=== PATIENT | female | born 2005 | race Caucasian/White ===

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

== ENCOUNTER 2024-12-21 13:25 | Emergency (ER) | payer OTHER, SELFPAY ==
--- NOTE | ~2024-12-21 | XR_ITS ---
EXAMINATION: XR foot LT min 3V DATE: 12/21/2024 14:19 INDICATION: Left foot injury. TECHNIQUE: 5 views of left foot were obtained. COMPARISON: None. FINDINGS: Alignment is normal. There is a chip avulsion fracture fragment at the lateral aspect of fo urth proximal interphalangeal joint. Joint spaces are normal. IMPRESSION: 1. Chip avulsion fracture fragment at the lateral aspect of fourth proximal interphalangeal joint. Reviewed, dictated and finalized at location A. LLMENT PROCESSOR IMPRESSION: 1. Chip avulsion fracture fragment at the lateral aspect of fourth proximal int erphalangeal joint.
--- NOTE | 2024-12-21 13:29 | ED_ITS ---
HPI - URI/Sore Throat General Chief Complaint: Extremity Injury, Lower Stated Complaint: Left Foot Pain Time Seen by Provider: 12/21/24 14:27 Source: patient and RN notes reviewed Mode of arrival: ambulatory Limitations: no limitations History of Present Illness MD elicited complaint: cough and sore throat Related Data Home Medications ?Medication ?Instructions ?Recorded ?Confirmed ?Last Taken ?Type aripiprazole 5 mg tablet mg 12/21/24 Unknown History cyclobenzaprine 10 mg tablet mg 12/21/24 Unknown History etonogestrel 0.12 mg-ethinyl vag ring vaginal 12/21/24 Unknown History estradiol 0.015 mg/24 hr vaginal ring (EluRyng) methylphenidate HCl 20 mg mg PO 12/21/24 Unknown History tablet,extended release Allergies Allergy/AdvReac Type Severity Reaction Status Date / Time No Known Allergies Allergy Verified 12/21/24 13:28 Review of Systems Review of Systems: CONSTITUTIONAL: Denies malaise, chills, sweats, or fever. EYES: Denies visual changes, redness, or discharge. ENT: Reports rhinorrhea, congestion, sinus pain, otalgia and sore throat. CARDIOVASCULAR: Denies chest pain, palpitations, or edema. RESPIRATORY: Reports cough. Denies dyspnea. GASTROINTESTINAL: Denies abdominal pain, nausea, vomiting, diarrhea SKIN: Denies rash or itching. MUSCULOSKELETAL: Denies myalgia. NEUROLOGIC: Denies headache. All systems reviewed & are unremarkable except as noted in HPI and below PMFSH Past Medical History Medical History (Updated 12/21/24 @ 14:33 by Jasmine Martínez NP) Smoker Depression Surgical History Surgical History History of laparoscopic appendectomy 06/14/[address] Rothman No pertinent past surgical history Social History Social History Smoking status: Never smoker Alcohol intake: current Substance use type: unknown Comments At time of signature, agree with nursing past medical, surgical, social and family history. There is no relevant family history pertinent to the presenting complaint Exam Narrative: GENERAL: Well-appearing, well-nourished, and in no acute distress. HEAD: Normocephalic EYES: PERRLA, conjunctivae clear ENT: Nares clear, turbinates edematous and erythematous, clear discharge. Mucous membranes moist. TM pearly niño with dull light reflex bilaterally; no tragal tenderness. Oropharynx not erythematous without lesions. Tonsils not enlarged and without exudate, no drooling, no hoarseness, no trismus, uvula midline. NECK: Supple. No lymphadenopathy CHEST: Clear to auscultation, breath sounds equal. No wheezing, rhonchi, rales, or stridor. No respiratory distress, speaks in full sentences. HEART: Regular rate and rhythm. No murmur heard. SKIN: Warm, dry, no rash. NEURO: Alert and oriented x3. PSYCH: Normal mood and affect Course Course Emergency Course: Patient is aware of diagnosis, understands and agrees to treatment plan. Anticipatory guidance given. Patient agrees to follow-up as directed and is aware of reasons to seek care at the emergency department. Portions of this record may have been created with voice recognition software Level of Care: Express Care Visit Vital Signs Vital signs: Reviewed. MDM - URI/Sore Throat MDM Narrative Medical decision making narrative: Differential diagnosis considered: Jefferson virus, strep pharyngitis, allergic rhinitis, upper respiratory tract infection, sinusitis, rhinosinusitis, nasopharyngitis. viral pharyngitis, otitis media, otitis externa, pneumonia, bronchitis, viral cough syndrome, viral syndrome, and influenza. Exam findings show no acute concerns or changes; patient is non-toxic appearing and is in no distress. Patient is appropriate for outpatient treatment and follow-up. Lab Data Attestation: I reviewed the patient's lab results. Imaging Data Radiologist's impression: EXAMINATION: XR foot LT min 3V DATE: 12/21/2024 14:19 INDICATION: Left foot injury. TECHNIQUE: 5 views of left foot were obtained. COMPARISON: None. FINDINGS: Alignment is normal. There is a chip avulsion fracture fragment at the lateral aspect of fourth proximal interphalangeal joint. Joint spaces are normal. IMPRESSION: 1. Chip avulsion fracture fragment at the lateral aspect of fourth proximal interphalangeal joint. Critical Care Time Critical Care Time Critical Care Time: No Discharge Plan Discharge Clinical Impression: Avulsion fracture Patient Disposition: Home, Self-Care Condition: Stable Instructions: Toe Fracture (ED) Additional Instructions: Please rest, ice and elevate the affected extremity. Please take Motrin 600mg every 8 hours, as needed, for pain (take with food). Follow up with Orthopedics or your primary care provider in 1-2 days for further evaluation - please call for an appointment. Keep orthopedic shoe on when walking, you may also yeyo tape the toe. Please go to ER immediately for increased pain, tingling/numbness, swelling, redness, and fever Patient Language: Vietnamese Prescriptions: No Action cyclobenzaprine 10 mg tablet methylphenidate HCl 20 mg tablet extended release PO etonogestrel-ethinyl estradiol [EluRyng] 0.12-0.015 mg/24 hr ring VAGINAL aripiprazole 5 mg tablet Follow-up/Referrals: Ray,THELMA Paredes [Primary Care Provider] - Time of Disposition: 14:33
[2024-12-21 13:36] VITALS: BP 119/66; PULSE 105; RESP 20; TEMP 36.8; O2SAT 100
--- NOTE | 2024-12-21 14:35 | ED_ITS ---
HPI - Extremity Injury (Lower) General Chief Complaint: Extremity Injury, Lower Stated Complaint: Left Foot Pain Time Seen by Provider: 12/21/24 14:27 Source: patient and RN notes reviewed Mode of arrival: ambulatory Limitations: no limitations History of Present Illness HPI Narrative: 19-year-old female presents with concern for injury to her left foot. Reports last night she was doing handstands when she bent her toe back the wrong way. She reports pain at the base the toe, but swelling and bruising. MD complaint: foot injury Related Data Home Medications ?Medication ?Instructions ?Recorded ?Confirmed ?Last Taken ?Type aripiprazole 5 mg tablet mg 12/21/24 Unknown History cyclobenzaprine 10 mg tablet mg 12/21/24 Unknown History etonogestrel 0.12 mg-ethinyl vag ring vaginal 12/21/24 Unknown History estradiol 0.015 mg/24 hr vaginal ring (EluRyng) methylphenidate HCl 20 mg mg PO 12/21/24 Unknown History tablet,extended release Allergies Allergy/AdvReac Type Severity Reaction Status Date / Time No Known Allergies Allergy Verified 12/21/24 13:28 Review of Systems Review of Systems: CONSTITUTIONAL: Denies malaise, chills, sweats, or fever. SKIN: Denies rash or itching, open skin, laceration, abrasion, redness, warmth MUSCULOSKELETAL: Reports left foot pain, swelling NEUROLOGIC: Denies numbness, weakness All systems reviewed & are unremarkable except as noted in HPI and below PMFSH Past Medical History Medical History (Updated 12/21/24 @ 14:33 by Jasmine Martínez NP) Smoker Depression Surgical History Surgical History History of laparoscopic appendectomy 06/14/[address] Rothman No pertinent past surgical history Social History Social History Smoking status: Never smoker Alcohol intake: current Substance use type: unknown Comments At time of signature, agree with nursing past medical, surgical, social and family history. There is no relevant family history pertinent to the presenting complaint Exam Narrative: GENERAL: Well-appearing, well-nourished, and in no acute distress. HEAD: Normocephalic, atraumatic. EYES: PERRLA, conjunctivae clear NECK: Supple. CHEST: Speaks in full sentences. No respiratory distress. HEART: Regular rate and rhythm. Normal and equal peripheral pulses. EXTREMITIES: Left foot and digits have grossly normal strength and sensation, grossly normal range of motion. Mild edema and ecchymosis noted to the base of the 4th digit. Normal sensation with sensitivity to light touch and pain. Fourth digit tenderness. No open wounds, no skin tenting, no devitalized tissue or atrophy, no trophic changes, no obvious deformity, alignment normal, nearby joints and structures intact. Distal pulses palpable and equal bilaterally, skin warm, dry, pink. Capillary refill less than 3 seconds. SKIN: Warm, dry, no rash. NEURO: Alert and oriented x3. PSYCH: Normal mood and affect Course Course Emergency Course: Patient is aware of diagnosis, understands and agrees to treatment plan. Anticipatory guidance given. Patient agrees to follow-up as directed and is aware of reasons to seek care at the emergency department. Portions of this record may have been created with voice recognition software Level of Care: Express Care Visit Vital Signs Vital signs: Vital Signs Temperature 98.2 F 12/21/24 13:36 Pulse Rate 105 H 12/21/24 13:36 Respiratory Rate 20 12/21/24 13:36 Blood Pressure 119/66 12/21/24 13:36 Pulse Oximetry 100 12/21/24 13:36 Oxygen Delivery Room Air 12/21/24 13:36 Temperature 98.2 F 12/21/24 13:36 Pulse Rate 105 H 12/21/24 13:36 Respiratory Rate 20 12/21/24 13:36 Blood Pressure 119/66 12/21/24 13:36 Pulse Oximetry 100 12/21/24 13:36 Oxygen Delivery Room Air 12/21/24 13:36 Reviewed. MDM - Extremity Injury (Lower) MDM Narrative Medical decision making narrative: Patients injury and pain is consistent with musculoskeletal etiology. No signs of neurological or vascular compromise on exam. Compartments and tissues are soft without signs of compartment syndrome. Pain is felt appropriate for further evaluation on an outpatient basis. Critical Care Time Critical Care Time Critical Care Time: No Discharge Plan Discharge Clinical Impression: Avulsion fracture Patient Disposition: Home, Self-Care Condition: Stable Instructions: Toe Fracture (ED) Additional Instructions: Please rest, ice and elevate the affected extremity. Please take Motrin 600mg every 8 hours, as needed, for pain (take with food). Follow up with Orthopedics or your primary care provider in 1-2 days for further evaluation - please call for an appointment. Keep orthopedic shoe on when walking, you may also yeyo tape the toe. Please go to ER immediately for increased pain, tingling/numbness, swelling, redness, and fever Patient Language: [place]de[place] Prescriptions: No Action cyclobenzaprine 10 mg tablet methylphenidate HCl 20 mg tablet extended release PO etonogestrel-ethinyl estradiol [EluRyng] 0.12-0.015 mg/24 hr ring VAGINAL aripiprazole 5 mg tablet Follow-up/Referrals: Ray,THELMA Paredes [Primary Care Provider] - Rex Bush MD [Physician] - Time of Disposition: 14:33
== END 2024-12-21 14:50 | disposition home or self-care (01) ==
PROVIDERS: Emergency Provider Nurse Practitioner; PCP Physician Assistant
DX: S92.512A Displaced fracture of proximal phalanx of left lesser toe(s), initial encounter for closed fracture (principal); X50.9XXA Other and unspecified overexertion or strenuous movements or postures, initial encounter
CPT/HCPCS: 73630; 99214; G0463

== ENCOUNTER 2025-08-10 17:12 | Emergency (ER) | payer OTHER, SELFPAY ==
[2025-08-10 17:38] VITALS: BP 128/81; PULSE 111; RESP 16; TEMP 36.9; O2SAT 100
--- OUTSIDE RECORDS SUMMARY | 2025-08-10 17:47 | XMS_ITS | Patient Health Record ---
Author Organization [facility] Address [address] [place] [address] Care Team Providers Care Electronics Scale Tester Name Role Phone Aashish Brar Primary Care Provider Sherie Goldberg Unavailable [phone] Allergies No Known Allergies Results Component Value Reference Range Flag Notes Test Reviewed date:10/19/2024 12:41:06 PM Interpretation: Performing Lab: Notes/Report: Test urine NEGATIVE 0 - 0 UDT Reviewed date:10/19/2024 12:41:06 PM Interpretation: Performing Lab: Notes/Report: THC POS 0 - 50 ng/ml Cocaine NEG 0 - 300 ng/ml Amphetamine NEG 0 - 1000 ng/ml Buprenorphine (BUP) NEG 0 - 10 ng/ml Secobarbital (Bar) NEG 0 - 300 ng/ml Oxazepam (BZO) NEG 0 - 300 ng/ml 0-tdrmnvairr-7,2-xamvyspa-9, 3-dip henylpyrrolidine (EDDP) NEG 0 - 300 ng/ml Methamphetamine (MET) NEG 0 - 1000 ng/ml Methylenedioxymethamphetamin e (MDMA) NEG 0 - 500 ng/ml Morphine (MOP 300/LUI1371) NEG 0 - 300 ng/ml Methadone (MTD) NEG 0 - 300 ng/ml Phencyclidine (PCP) NEG 0 - 25 ng/ml Nortriptyline (TCA) NEG 0 - 1000 ng/ml Oxycodone NEG 0 - 300 ng/ml x NEG 0 - 300 ng/ml UDT Reviewed date:01/18/2025 11:57:27 AM Interpretation: Performing Lab: Notes/Report: THC P 0 - 50 ng/ml Cocaine N 0 - 300 ng/ml Amphetamine N 0 - 1000 ng/ml Buprenorphine (BUP) N 0 - 10 ng/ml Secobarbital (Bar) N 0 - 300 ng/ml Oxazepam (BZO) N 0 - 300 ng/ml 3-wvjgmpubbh-9,0-lwmzlrjp-4, 3-dip henylpyrrolidine (EDDP) N 0 - 300 ng/ml Methamphetamine (MET) N 0 - 1000 ng/ml Methylenedioxymethamphetamin e (MDMA) N 0 - 500 ng/ml Morphine (MOP 300/[id number]) N 0 - 300 ng/ml Methadone (MTD) N 0 - 300 ng/ml Phencyclidine (PCP) N 0 - 25 ng/ml Nortriptyline (TCA) N 0 - 1000 ng/ml Oxycodone N 0 - 300 ng/ml x N 0 - 300 ng/ml DRUG MONITOR,METHYLPHENID ME TAB, QN, URINE ([id number]) Reviewed date:01/30/2025 04:40:16 PM Interpretation: Performing Lab:[facility], [facility] [facility] Felisha Brandon, Director - [id number] [facility] Notes/Report: FASTING: NO Ritalinic Acid 7965 <100 ng/mL H medMATCH Ritalinic Acid CONSISTENT Ritalinic Acid Comments S ee Ritalinic Acid Notes, LDT Notes Notes and Comments This drug testing is for medical treatment only. Analysis was performed as non-forensic testing and these results should be used only by healthcare providers to render diagnosis or treatment, or to monitor progress of medical conditions. Ritalinic Acid Notes: Ritalinic Acid detected is consistent with the use of the drug Methylphenidate. LDT Notes: Confirmation tests were developed and their analytical performance characteristics have been determined by [facility]. It has not been cleared or approved by the FDA. This assay has been validated pursuant to the CLIA regulations and is used for clinical purposes. medMATCH(R) enables providers to identify if drug use is consistent or inconsistent with a corresponding prescribed medication(s) list. Healthcare Providers needing Interpretation assistance, please contact us at [phone] ( ) M-F, 8am to 10pm EST PRESCRIBED DRUGS, medMATCH(R ) (40848) Reviewed date:01/30/2025 04:40:16 PM Interpretation: Performing Lab:[place], [id number], [id number] Matthew Brown MD Notes/Report: FASTING: NO medMATCH Summary Prescribed Prescribed Not Prescribed Consistent Inconsistent Inconsistent Methylphenidate Prescribed Drug 1 Methylphenidate Reason For Referral No Information Medications Medication SIG (Take, Route, Frequency, Duration) Notes Start Date End Date Status lamoTRIgine 25 MG Tablet 1 tablet Orally daily; Duration: 30 days 08/08/2025 Active ARIPiprazole 20 MG Tablet 1 tablet Orall y Once a day; Duration: 90 days 08/08/2025 Active busPIRone HCl 10 MG Tablet 2 tablet Oral ly Twice a day; Duration: 90 days 08/08/2025 11/06/2025 Active hydrOXYzine HCl 50 MG Tablet 1 tablet Oral twice a day; Duration: 90 days As needed 08/08/2025 Active Methylphenidate HCl ER (XR) 40 MG Capsule Extended Release 24 Hour TAKE 1 CAPSULE BY MOUTH DAILY AT 3 AM Oral; Duration: 30 Days Active Methylphenidate HCl 10 MG Tablet Oral; Duration: 30 Days per PCP Active Social History Tobacco Use: Social History Observation Description Date Details (start date - stop date) Current Smoker 11/16/2021 - NA Sex Assigned At : Social History Observation Description Sex Assigned At Female Social History Miscellaneous: Social Info Question Answer Notes Advance Care Planning Are you your own decision-maker Yes Do you have Power of [employer] [facility] or [facility]? No Safety issues: Are there any firearms in the house? No Social History Social Info Question Answer Notes Household: Marital Status: Single Number of Adults in household: 2 Number of Children in Household: 0 Level of Education: Not Finished College Drug/Alcohol: Social Info Question Answer Notes Drugs Have you used drugs other than those for medical reasons in the past 12 months? No AUDIT-C (Standard) Points 5 Interpretation Positive Did you have a drink contain ing alcohol in the past year? Yes How often did you have six or more drinks on one occasion in the past year? Less than monthly (1 point) How many drinks did you have on a typical day when you were drinking in the past year? 7 to 9 drinks (3 points) How often did you have a drink containing alcohol in the past year? Monthly or less (1 point) Tobacco Use: Social Info Question Answer Notes Tobacco Control (Standard) Tobacco use: Current every day smoker When did you start smoking? 11/16/2021 When did you start smoking? 2019 How often do you smoke cigarettes? Every day How many cigarettes a day do you smoke? 11-20 How soon after you wake up do you smoke your first cigarette? Within 5 minutes Are you interested in quitting? Thinking about quitting Additional Details Category Social Info Options Details Miscellaneous: Occupation: [employer] Drug/Alcohol: Do you smoke marijuana? Adm its, has medical card Do you drink alcohol? No Problems Problem Type SNOMED Code ICD Code Onset Dates Problem Status W/U Status Risk Notes Problem Generalized anxiety disorder (78580804) STACIA (generalized anxiety disorder) (F41.1) Active confirmed Problem Attention deficit hyperactivity disorder (405738789) ADHD (attention deficit hyperactivity disorder), combined type (F90.2) Active confirmed Problem Bipolar 1 disorder (146704914) Bipolar 1 disorder (F31.9) Active confirmed Vital Signs Heart Rate 87 /min 08/08/2025 Height-cm 154.94 cm 08/08/2025 Blood pressure diastolic 82 mm Hg 08/08/2025 Weight-kg 54.43 kg 08/08/2025 Height 61 in 08/08/2025 Blood pressure systolic 124 mm Hg 08/08/2025 Weight 120 lbs 08/08/2025 BMI 22.67 kg/m2 08/08/2025 Encounters Encounter Location Date Provider Diagnosis [employer] [address] [facility] [address] [place] [address] 10/19/2024 Sherie Bolanos Bipolar 1 disorder F31.9 ; STACIA (generalized anxiety disorder) F41.1 and ADHD (attention deficit hyperactivity disorder), combined type F90.2 [employer] [address] [facility] [address] [place] [address] 11/30/2024 Sherie Kurdhruv Bipolar 1 disorder F31.9 ; STACIA (generalized anxiety disorder) F41.1 and ADHD (attention deficit hyperactivity disorder), combined type F90.2 [employer] [address] [facility] [address] [place] [address] 01/18/2025 Sheriegerard Bolanos Bipolar 1 disorder F31.9 ; STACIA (generalized anxiety disorder) F41.1 and ADHD (attention deficit hyperactivity disorder), combined type F90.[address] [facility] [address] [place] [address] 02/14/2025 Sheriegerard Bolanos Encounter for screen ing for cardiovascular disorders Z13.6 ; Benign essential HTN I10 ; Encounter for screening for depression Z13.31 ; Bipolar 1 disorder F31.9 ; STACIA (generalized anxiety disorder) F41.1 and ADHD (attention deficit hyperactivity disorder), combined type F90.2 [facility] [employer] [facility] [address] [place] [address] 03/17/2025 Sheriegerard Bolanos Bipolar 1 disorder F31.9 ; STACIA (generalized anxiety disorder) F41.1 ; ADHD (attention deficit hyperactivity disorder), combined type F90.2 ; Encounter for screening for depression Z13.31 ; Nicotine use Z72.0 ; Encounter for screening for cardiovascular disorders Z13.6 and Benign essential HTN I10 [facility] [employer] [facility] [address] [place] [address] 04/04/2025 Sheriegerard Bolanos STACIA (generalized anxiety disorder) F41.1 ; Bipolar 1 disorder F31.9 ; ADHD (attention deficit hyperactivity disorder), combined type F90.2 ; Encounter for screening for depression Z13.31 ; Nicotine use Z72.0 ; Encounter for screening for cardiovascular disorders Z13.6 and Benign essential HTN I10 [facility] [employer] [facility] [address] [place] [address] 05/02/2025 Sheriegerard Bolanos STACIA (generalized anxiety disorder) F41.1 ; Bipolar 1 disorder F31.9 ; ADHD (attention deficit hyperactivity disorder), combined type F90.2 ; Encounter for screening for depression Z13.31 ; Nicotine use Z72.0 ; Encounter for screening for cardiovascular disorders Z13.6 and Benign essential HTN I10 [facility] [place] [address] [facility] [address] [place] [address] 05/30/2025 Sheriegerard Bolanos Nicotine use Z72.0 ; STACIA (generalized anxiety disorder) F41.1 ; Bipolar 1 disorder F31.9 ; ADHD (attention deficit hyperactivity disorder), combined type F90.2 and Benign essential [facility]N I[facility] [address] [facility] [address] [place] [address] 07/11/2025 Sherie Kurilla Nicotine use Z72.0 ; STACIA (generalized anxiety disorder) F41.1 ; Bipolar 1 disorder F31.9 and ADHD (attention deficit hyperactivity disorder), combined type F90.2 [facility] [address] [facility] [address] [place] [address] 08/08/2025 Sherie Kurilla Nicotine use Z72.0 ; STACIA (generalized anxiety disorder) F41.1 ; Bipolar 1 disorder F31.9 and ADHD (attention deficit hyperactivity disorder), combined type F90.2 [facility] [address] [address] 05/31/2025 Sherie Kurilla [place] [address] [address] 02/12/2025 Sherie Kurilla [place] [address] [address] 05/02/2025 Sherie Kurilla [facility] [address] [address] 05/02/2025 Sherie Kurilla Assessments Encounter Date Diagnosis (ICD Code) Assessment Notes Treatment Notes Treatment Clinical Notes Section Notes 10/19/2024 Bipolar 1 disorder (ICD-10 - F31.9) Second generation antipsychotics (SGAs) have metabolic syndrome issues with weight gain, increase in prolactin, increased waist circumference, increased lipids, and increased glucose. Thus routine monitoring of weight, metabolic labs, etc. is indicated. A general rank ordering of antipsychotics that have the greatest to the least risk of metabolic effects is olanzapine, quetiapine, risperidone, ziprasidone, and aripiprazole. However, weight gain can occur with all of these drugs and considerable variability exists among patients receiving the same drug regarding the risk of metabolic effects. Anti-psychotic agents not only increase the risk of metabolic disorder, they also increase the risk of CVA, akathisia, and movement disorders including EPS or tardive dyskinesia (more common with first generation antipsychotics) and more. 1. Bipolar disorder New dx; MDQ stongly suggestive of bipolar, historically symptoms last longer than 7 days; positive family history of bipolar disorder; history of poor response to antidepressants -Start Abilify 2mg daily for mood stabilization 2. STACIA overall stable -abilify 2mg daily 3. ADHD stable -cont stimulant per PCP 10/19/2024 STACIA (generalized anxiety disorder) (ICD-10 - F41.1) 1. Bipolar disorder New dx; MDQ stongly suggestive of bipolar, historically symptoms last longer than 7 days; positive family history of bipolar disorder; history of poor response to antidepressants -Start Abilify 2mg daily for mood stabilization 2. STACIA overall stable -abilify 2mg daily 3. ADHD stable -cont stimulant per PCP 01/18/2025 Bipolar 1 disorder (ICD-10 - F31.9) Second generation antipsychotics (SGAs) have metabolic syndrome issues with weight gain, increase in prolactin, increased waist circumference, increased lipids, and increased glucose. Thus routine monitoring of weight, metabolic labs, etc. is indicated. A general rank ordering of antipsychotics that have the greatest to the least risk of metabolic effects is olanzapine, quetiapine, risperidone, ziprasidone, and aripiprazole. However, weight gain can occur with all of these drugs and considerable variability exists among patients receiving the same drug regarding the risk of metabolic effects. Anti-psychotic agents not only increase the risk of metabolic disorder, they also increase the risk of CVA, akathisia, and movement disorders including EPS or tardive dyskinesia (more common with first generation antipsychotics) and more. 02/14/2025 Encounter for screening for cardiovascular disorders (ICD-10 - Z13.6) 11/30/2024 Bipolar 1 disorder (ICD-10 - F31.9) Second generation antipsychotics (SGAs) have metabolic syndrome issues with weight gain, increase in prolactin, increased waist circumference, increased lipids, and increased glucose. Thus routine monitoring of weight, metabolic labs, etc. is indicated. A general rank ordering of antipsychotics that have the greatest to the least risk of metabolic effects is olanzapine, quetiapine, risperidone, ziprasidone, and aripiprazole. However, weight gain can occur with all of these drugs and considerable variability exists among patients receiving the same drug regarding the risk of metabolic effects. Anti-psychotic agents not only increase the risk of metabolic disorder, they also increase the risk of CVA, akathisia, and movement disorders including EPS or tardive dyskinesia (more common with first generation antipsychotics) and more. 03/17/2025 STCAIA (generalized anxiety disorder) (ICD-10 - F41.1) 03/17/2025 Bipolar 1 disorder (ICD-10 - F31.9) Second generation antipsychotics (SGAs) have metabolic syndrome issues with weight gain, increase in prolactin, increased waist circumference, increased lipids, and increased glucose. Thus routine monitoring of weight, metabolic labs, etc. is indicated. A general rank ordering of antipsychotics that have the greatest to the least risk of metabolic effects is olanzapine, quetiapine, risperidone, ziprasidone, and aripiprazole. However, weight gain can occur with all of these drugs and considerable variability exists among patients receiving the same drug regarding the risk of metabolic effects. Anti-psychotic agents not only increase the risk of metabolic disorder, they also increase the risk of CVA, akathisia, and movement disorders including EPS or tardive dyskinesia (more common with first generation antipsychotics) and more. 04/04/2025 STACIA (generalized anxiety disorder) (ICD-10 - F41.1) 04/04/2025 Bipolar 1 disorder (ICD-10 - F31.9) Second generation antipsychotics (SGAs) have metabolic syndrome issues with weight gain, increase in prolactin, increased waist circumference, increased lipids, and increased glucose. Thus routine monitoring of weight, metabolic labs, etc. is indicated. A general rank ordering of antipsychotics that have the greatest to the least risk of metabolic effects is olanzapine, quetiapine, risperidone, ziprasidone, and aripiprazole. However, weight gain can occur with all of these drugs and considerable variability exists among patients receiving the same drug regarding the risk of metabolic effects. Anti-psychotic agents not only increase the risk of metabolic disorder, they also increase the risk of CVA, akathisia, and movement disorders including EPS or tardive dyskinesia (more common with first generation antipsychotics) and more. 05/02/2025 STACIA (generalized anxiety disorder) (ICD-10 - F41.1) 05/02/2025 Bipolar 1 disorder (ICD-10 - F31.9) Second generation antipsychotics (SGAs) have metabolic syndrome issues with weight gain, increase in prolactin, increased waist circumference, increased lipids, and increased glucose. Thus routine monitoring of weight, metabolic labs, etc. is indicated. A general rank ordering of antipsychotics that have the greatest to the least risk of metabolic effects is olanzapine, quetiapine, risperidone, ziprasidone, and aripiprazole. However, weight gain can occur with all of these drugs and considerable variability exists among patients receiving the same drug regarding the risk of metabolic effects. Anti-psychotic agents not only increase the risk of metabolic disorder, they also increase the risk of CVA, akathisia, and movement disorders including EPS or tardive dyskinesia (more common with first generation antipsychotics) and more. 05/30/2025 Nicotine use (ICD-10 - Z72.0) 07/11/2025 Nicotine use (ICD-10 - Z72.0) 08/08/2025 Nicotine use (ICD-10 - Z72.0) 08/08/2025 STACIA (generalized anxiety disorder) (ICD-10 - F41.1) 07/11/2025 STACIA (generalized anxiety disorder) (ICD-10 - F41.1) 05/30/2025 STACIA (generalized anxiety disorder) (ICD-10 - F41.1) 05/02/2025 ADHD (attention deficit hyperactivity disorder), combined type (ICD-10 - F90.2) Stimulant per PCP --no stimulant prescribed from our office due to controlled substance policy and cannabis usage 04/04/2025 ADHD (attention deficit hyperactivity disorder), combined type (ICD-10 - F90.2) Stimulant per PCP --no stimulant prescribed from our office due to controlled substance policy and cannabis usage 03/17/2025 ADHD (attention deficit hyperactivity disorder), combined type (ICD-10 - F90.2) Stimulant per PCP --no stimulant prescribed from our office due to controlled substance policy and cannabis usage 01/18/2025 STACIA (generalized anxiety disorder) (ICD-10 - F41.1) 02/14/2025 Benign essential HTN (ICD-10 - I10) Metoprolol per PCP 10/19/2024 ADHD (attention deficit hyperactivity disorder), combined type (ICD-10 - F90.2) stimulant per PCP 1. Bipolar disorder New dx; MDQ stongly suggestive of bipolar, historically symptoms last longer than 7 days; positive family history of bipolar disorder; history of poor response to antidepressants -Start Abilify 2mg daily for mood stabilization 2. STACIA overall stable -abilify 2mg daily 3. ADHD stable -cont stimulant per PCP 11/30/2024 STACIA (generalized anxiety disorder) (ICD-10 - F41.1) 11/30/2024 ADHD (attention deficit hyperactivity disorder), combined type (ICD-10 - F90.2) stimulant per PCP 02/14/2025 Encounter for screening for depression (ICD-10 - Z13.31) 01/18/2025 ADHD (attention deficit hyperactivity disorder), combined type (ICD-10 - F90.2) Stimulant per PCP --no stimulant prescribed from our office due to controlled substance policy and cannabis usage 03/17/2025 Encounter for screening for depression (ICD-10 - Z13.31) 04/04/2025 Encounter for screening for depression (ICD-10 - Z13.31) 05/02/2025 Encounter for screening for depression (ICD-10 - Z13.31) 05/30/2025 Bipolar 1 disorder (ICD-10 - F31.9) Second generation antipsychotics (SGAs) have metabolic syndrome issues with weight gain, increase in prolactin, increased waist circumference, increased lipids, and increased glucose. Thus routine monitoring of weight, metabolic labs, etc. is indicated. A general rank ordering of antipsychotics that have the greatest to the least risk of metabolic effects is olanzapine, quetiapine, risperidone, ziprasidone, and aripiprazole. However, weight gain can occur with all of these drugs and considerable variability exists among patients receiving the same drug regarding the risk of metabolic effects. Anti-psychotic agents not only increase the risk of metabolic disorder, they also increase the risk of CVA, akathisia, and movement disorders including EPS or tardive dyskinesia (more common with first generation antipsychotics) and more. 07/11/2025 Bipolar 1 disorder (ICD-10 - F31.9) Second generation antipsychotics (SGAs) have metabolic syndrome issues with weight gain, increase in prolactin, increased waist circumference, increased lipids, and increased glucose. Thus routine monitoring of weight, metabolic labs, etc. is indicated. A general rank ordering of antipsychotics that have the greatest to the least risk of metabolic effects is olanzapine, quetiapine, risperidone, ziprasidone, and aripiprazole. However, weight gain can occur with all of these drugs and considerable variability exists among patients receiving the same drug regarding the risk of metabolic effects. Anti-psychotic agents not only increase the risk of metabolic disorder, they also increase the risk of CVA, akathisia, and movement disorders including EPS or tardive dyskinesia (more common with first generation antipsychotics) and more. 08/08/2025 Bipolar 1 disorder (ICD-10 - F31.9) Second generation antipsychotics (SGAs) have metabolic syndrome issues with weight gain, increase in prolactin, increased waist circumference, increased lipids, and increased glucose. Thus routine monitoring of weight, metabolic labs, etc. is indicated. A general rank ordering of antipsychotics that have the greatest to the least risk of metabolic effects is olanzapine, quetiapine, risperidone, ziprasidone, and aripiprazole. However, weight gain can occur with all of these drugs and considerable variability exists among patients receiving the same drug regarding the risk of metabolic effects. Anti-psychotic agents not only increase the risk of metabolic disorder, they also increase the risk of CVA, akathisia, and movement disorders including EPS or tardive dyskinesia (more common with first generation antipsychotics) and more. 08/08/2025 ADHD (attention deficit hyperactivity disorder), combined type (ICD-10 - F90.2) Stimulant per PCP --no stimulant prescribed from our office due to controlled substance policy and cannabis usage 07/11/2025 ADHD (attention deficit hyperactivity disorder), combined type (ICD-10 - F90.2) Stimulant per PCP --no stimulant prescribed from our office due to controlled substance policy and cannabis usage 05/30/2025 ADHD (attention deficit hyperactivity disorder), combined type (ICD-10 - F90.2) Stimulant per PCP --no stimulant prescribed from our office due to controlled substance policy and cannabis usage 05/02/2025 Nicotine use (ICD-10 - Z72.0) 03/17/2025 Nicotine use (ICD-10 - Z72.0) 04/04/2025 Nicotine use (ICD-10 - Z72.0) 02/14/2025 Bipolar 1 disorder (ICD-10 - F31.9) Second generation antipsychotics (SGAs) have metabolic syndrome issues with weight gain, increase in prolactin, increased waist circumference, increased lipids, and increased glucose. Thus routine monitoring of weight, metabolic labs, etc. is indicated. A general rank ordering of antipsychotics that have the greatest to the least risk of metabolic effects is olanzapine, quetiapine, risperidone, ziprasidone, and aripiprazole. However, weight gain can occur with all of these drugs and considerable variability exists among patients receiving the same drug regarding the risk of metabolic effects. Anti-psychotic agents not only increase the risk of metabolic disorder, they also increase the risk of CVA, akathisia, and movement disorders including EPS or tardive dyskinesia (more common with first generation antipsychotics) and more. 03/17/2025 Encounter for screening for cardiovascular disorders (ICD-10 - Z13.6) 02/14/2025 STACIA (generalized anxiety disorder) (ICD-10 - F41.1) 04/04/2025 Encounter for screening for cardiovascular disorders (ICD-10 - Z13.6) 05/02/2025 Encounter for screening for cardiovascular disorders (ICD-10 - Z13.6) 05/30/2025 Benign essential HTN (ICD-10 - I10) Metoprolol per PCP 05/02/2025 Benign essential HTN (ICD-10 - I10) Metoprolol per PCP 03/17/2025 Benign essential HTN (ICD-10 - I10) Metoprolol per PCP 04/04/2025 Benign essential HTN (ICD-10 - I10) Metoprolol per PCP 02/14/2025 ADHD (attention deficit hyperactivity disorder), combined type (ICD-10 - F90.2) Stimulant per PCP --no stimulant prescribed from our office due to controlled substance policy and cannabis usage 10/19/2024 Other -Assessment and treatment plan reviewed with patient. -Compliance with treatment plan importance discussed. -Discussed the risks/benefits of this medication -Discussed medication side effects. -Contact office if symptoms worsen. -Discussed that it can take up to 6-8 weeks to see full therapeutic effects of psychotropic medications. -Crisis prevention hotline 988. 1. Bipolar disorder New dx; MDQ stongly suggestive of bipolar, historically symptoms last longer than 7 days; positive family history of bipolar disorder; history of poor response to antidepressants -Start Abilify 2mg daily for mood stabilization 2. STACIA overall stable -abilify 2mg daily 3. ADHD stable -cont stimulant per PCP 11/30/2024 Other Increase Abilify to 5mg daily for mood Patient educated on all medications including potential benefits, side effects, risks. Educated on proper dosing schedule and importance of compliance. Monitor weight--discusse d incorporating protein shakes and multivitamin into diet -Assessment and treatment plan reviewed with patient. -Compliance with treatment plan importance discussed. -Discussed the risks/benefits of this medication -Discussed medication side effects. -Contact office if symptoms worsen. -Discussed that it can take up to 6-8 weeks to see full therapeutic effects of psychotropic medications. -Crisis prevention [place] [address]. 01/18/2025 Other Increase Abilify to 10mg daily for mixed symptoms, paranoia Patient educated on all medications including potential benefits, side effects, risks. Educated on proper dosing schedule and importance of compliance. Stimulant treatment per PCP. Discussed that stimulants can exacerbate symptoms of bipolar disorder and paranoia. Although no recent dose adjustment in stimulat so not likely the root cause of symptoms. Also note that cannabis can cause depressed mood, paranoia. Encouraged to re-establish with counseling -Assessment and treatment plan reviewed with patient. -Compliance with treatment plan importance discussed. -Discussed the risks/benefits of this medication -Discussed medication side effects. -Contact office if symptoms worsen. -Discussed that it can take up to 6-8 weeks to see full therapeutic effects of psychotropic medications. -Crisis prevention [place] [address]. 03/17/2025 Other Increase Abilify to 15mg daily for mood Increase buspar to 10mg BID for anxiety Patient educated on all medications including potential benefits, side effects, risks. Educated on proper dosing schedule and importance of compliance. -Assessment and treatment plan reviewed with patient. -Compliance with treatment plan importance discussed. -Discussed the risks/benefits of this medication -Discussed medication side effects. -Contact office if symptoms worsen. -Discussed that it can take up to 6-8 weeks to see full therapeutic effects of psychotropic medications. -Crisis prevention [place] [address]. 04/04/2025 Other Increase buspar to 15mg BID for anxiety management Patient educated on all medications including potential benefits, side effects, risks. Educated on proper dosing schedule and importance of compliance. Cont counseling -Assessment and treatment plan reviewed with patient. -Compliance with treatment plan importance discussed. -Discussed the risks/benefits of this medication -Discussed medication side effects. -Contact office if symptoms worsen. -Discussed that it can take up to 6-8 weeks to see full therapeutic effects of psychotropic medications. -Crisis prevention [place] [address]. 05/02/2025 Other Increase buspar to 10mg BID for anxiety Patient educated on all medications including potential benefits, side effects, risks. Educated on proper dosing schedule and importance of compliance. PCP manages stimulant - no stimulant with our office due to cannabis use -Assessment and treatment plan reviewed with patient. -Compliance with treatment plan importance discussed. -Discussed the risks/benefits of this medication -Discussed medication side effects. -Contact office if symptoms worsen. -Discussed that it can take up to 6-8 weeks to see full therapeutic effects of psychotropic medications. -Crisis prevention [facility] 98. 05/30/2025 Other Increase Abilify to 20mg daily for mood support Increase buspar to 30mg BID for anxiety management Patient educated on all medications including potential benefits, side effects, risks. Educated on proper dosing schedule and importance of compliance. Neuropsychologic al testing resources provided for autism assessment Sign TRACI for counselor -Assessment and treatment plan reviewed with patient. -Compliance with treatment plan importance discussed. -Discussed the risks/benefits of this medication -Discussed medication side effects. -Contact office if symptoms worsen. -Discussed that it can take up to 6-8 weeks to see full therapeutic effects of psychotropic medications. -Crisis prevention [place] [address]. 07/11/2025 Other Decrease buspar to 20mg BID Start duloxetine 30mg daily for mood, anxiety - discussed to contact office or utilize walk in clinic if s/e occur, hx of SI on ssri medications Patient educated on all medications including potential benefits, side effects, risks. Educated on proper dosing schedule and importance of compliance. -Assessment and treatment plan reviewed with patient. -Compliance with treatment plan importance discussed. -Discussed the risks/benefits of this medication -Discussed medication side effects. -Contact office if symptoms worsen. -Discussed that it can take up to 6-8 weeks to see full therapeutic effects of psychotropic medications. -Crisis prevention [place] [address]. 08/08/2025 Other Discontinue duloxetine Start lamictal 25mg daily for mood, anxiety Patient educated on all medications including potential benefits, side effects, risks. Educated on proper dosing schedule and importance of compliance. Stimulant treatment per PCP -Assessment and treatment plan reviewed with patient. -Compliance with treatment plan importance discussed. -Discussed the risks/benefits of this medication -Discussed medication side effects. -Contact office if symptoms worsen. -Discussed that it can take up to 6-8 weeks to see full therapeutic effects of psychotropic medications. -Crisis prevention [place] [address]. Plan Of Treatment Next Appt Details Provider Name:Sherie luis, 09/04/2025 10:45:00 AM, [address], [facility] [address], [place], [address], Insurance Providers Payer Name Payer Address Payer Phone Subscriber Number Group Number Insured Name Patient Relationship to Insured Coverage Start Date Coverage End Date Umr [address] [address] [place] [address] [id number] ADRIA BRADLEY Self - patient is the insured Medical (General) History Medical History History ICD Code Past Psychiatric History: Anxiety Disord er,Major Depressive Episode abdominal aortic aneurysm: No atrial fibrillation: No chronic fatigue syndrome: No essential tremor: No hyperlipidemia: No hypertension: No Parkinson's disease: No restless leg syndrome: No stroke: No subdural hematoma: No type 1 diabetes mellitus: No type 2 diabetes mellitus: No vitamin B12 deficiency: Yes vitamin D deficiency: Yes Anxiety undefined Depression with Surgical History Surgery Date(Month/Year) appendectomy 2022 Hospitalization History Reason Date(Month/Year) May 2023 for cutting, SI; A ge 13 for depression, self harm; age 15 for suicide attempt by OD
--- OUTSIDE RECORDS SUMMARY | 2025-08-10 17:47 | XMS_ITS | Clinical Summary ---
Author Organization [facility] Address [address] [place] [address] Care Team Providers Care Train Examiner Name Role Phone Aashish Bell Primary Care Provider + Allergies No known active allergies Medications No known medications Immunizations Immunization Administration Dates Next Due PFIZER COVID-19 (MAYO CAP), MRNA, LNP-S, PF, 30 MCG/0.3 ML PAIGE-SUCROSE, IM 12/13/2021 PFIZER COVID-19 (ORIGINAL FO RMULATION, PURPLE CAP) mRNA, LNP-S, PF, 30 MCG/0.3 ML DOSE 11/22/2021 Social History Tobacco Use Types Packs/Day Years Used Date Smoking Tobacco: Never Smokeless Tobacco: Never Tobacco Cessation:Counseling Given: Not Answered Alcohol Use Standard Drinks/Week Comments Not Currently 0 (1 standard drink = 0.6 oz pur e alcohol) Comments No Sex and Gender Information Value Date Recorded Sex Assigned at Female 04/24/2025 2:35 PM CDT Legal Sex Female 9:04 AM CDT Gender Identity Female 02/04/2023 3:42 PM CDT Sexual Orientation Straight 02/04/2023 3: 42 PM CDT Last Filed Vital Signs Vital Sign Reading Time Taken Comments Blood Pressure 92/64 04/24/2025 2:34 PM CDT Pulse 87 04/24/2025 2:34 PM CDT Temperature 36.7 C (98.1 F) 04/24/2025 2:34 PM CDT Respiratory Rate 16 04/24/2025 2:34 PM CDT Oxygen Saturation 100% 04/24/2025 2:34 PM CDT Inhaled Oxygen Concentration - - Weight 65.6 kg (144 lb 10 oz) 04/24/2025 2:34 PM CDT Height 157.5 cm (5' 2) 04/24/2025 2:34 PM CDT Body Mass Index 26.45 04/24/2025 2:34 PM CDT Plan of Treatment Health Maintenance Due Date Last Done Comments Hepatitis B Vaccines (4 of 4 - 4-dose series) 05/23/2005 04/07/2005, 01/22/2005, 2004 Annual Physical 2007 HPV Vaccines (2 - 2-dose series) 02/09/2020 08/11/2019 Meningococcal B Vaccine (1 of 2 - Standard) 2020 Hepatitis C 2022 COVID-19 Vaccine (3 - season) 2025 12/13/2021, 11/22/2021 DTaP, Tdap and Td Vaccines (7 - Td or Tdap) 09/03/2026 09/03/2016, 07/31/2010, 06/03/2006, Additional history exists Pneumococcal Vaccine: Pediatrics (0 to 5 Years) and At-Risk Patients (6 to 49 Years) Aged Out 02/27/2006, 06/02/2005, 04/07/2005, Additional history exists No longer eligible based on patient's age to complete this topic Meningococcal Vaccine Aged Out 09/03/2016 No mar alison eligible based on patient's age to complete this topic RSV Immunizations Under 20 Months Aged Out No longer eligible based on patient's age to complete this topic Insurance [employer] Care Teams Train Examiner Relationship Specialty Start Date End Date Aashish Bell PA [facility] [id number] PCP - General PHYSICIAN ELEMENTARY SCHOOL TEACHER'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
--- OUTSIDE RECORDS SUMMARY | 2025-08-10 19:19 | XMS_ITS | Clinical Summary ---
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
--- NOTE | 2025-08-10 19:36 | ED_ITS ---
HPI - Allergic Reaction General Chief complaint: Allergic Reaction Stated complaint: ALL RX Time Seen by Provider: 08/10/25 19:02 History of Present Illness HPI narrative: 19-year-old otherwise healthy female with history of depression presenting to the emergency department with some acute rash like symptoms. Patient just started taking lamotrigine 3-4 days ago for her depression. She is on other antidepressant medications but denies any other new exposures, allergen exposures, pets, detergents, clothing or environmental exposures. She started noticing red bumps in her proximal thighs and between her shoulder blades under her bra line. Very minor and only slightly red and itchy. She took an anti allergy pill at home and all her symptoms have improved markedly. She only has some bumps leftover but no longer urticarial or itchy. Redness has subsided. No mucous membrane involvement. No tongue or oral lesions. No vulvar lesions or rash. No systemic features. No throat closing sensations or difficulty breathing. No nausea vomiting diarrhea losing consciousness. She was told by her pharmacist to come to the ER if she experienced a rash from this medication. Was otherwise in her normal state of health. Related Data Home Medications ?Medication ?Instructions ?Recorded ?Confirmed ?Last Taken ?Type aripiprazole 5 mg tablet mg 12/21/24 Unknown History cyclobenzaprine 10 mg tablet mg 12/21/24 Unknown Hist ory etonogestrel 0.12 mg-ethinyl vag ring vaginal 12/21/24 Unknown History estradiol 0.015 mg/24 hr vaginal ring (EluRyng) methylphenidate HCl 20 mg mg PO 12/21/24 Unknown Hist ory tablet,extended release Allergies Allergy/AdvReac Type Severity Reaction Status Date / Time lamotrigine Allergy Intermediate Rash Verified 08/10/25 17:40 Review of Systems Review of Systems: As reviewed [facility] Past Medical History Medical History Smoker Depression Surgical History Surgical History History of laparoscopic appendectomy 06/14/[address] Rothman No pertinent past surgical history Social History Social History Smoking status: Never smoker Alcohol intake: current Substance use type: unknown Exam Narrative: GENERAL: [Well-appearing, well-nourished, and in no acute distress.] HEAD: [Normocephalic, atraumatic.] EYES: [PERRLA and EOMI.] ENT: Nares clear, no rhinorrhea or epistaxis. Mucous membranes moist. no intraoral lesions, no mouth sores or mucocutaneous rash/pain. NECK: Supple. CHEST: [Clear to auscultation. No respiratory distress.] HEART: [Regular rate and rhythm]. No murmur heard. [Normal peripheral pulses.] ABDOMEN: [Soft, nondistended], [nontender], [No rigidity or guarding] EXTREMITIES: Normal range of motion. [No edema.] SKIN: Warm, dry, no rash. Very small bumps under the bra line bilaterally and in the proximal thighs no longer red or itchy but previously reported as raised and similar to hives. Improved after anti allergy med. NEURO: [No focal deficits]. Alert and oriented [x3.] PSYCH: [Normal mood and affect.] Course Vital Signs Vital signs: Vital Signs Temperature 36.9 C 08/10/25 17:38 Pulse Rate 111 H 08/10/25 17:38 Respiratory Rate 16 08/10/25 17:38 Blood Pressure 128/81 08/10/25 17:38 Pulse Oximetry 100 08/10/25 17:38 Oxygen Delivery Room Air 08/10/25 17:38 Temperature 36.8 C 08/10/25 19:49 Pulse Rate 77 08/10/25 19:49 Respiratory Rate 18 08/10/25 19:49 Blood Pressure 128/65 08/10/25 19:49 Pulse Oximetry 100 08/10/25 19:49 Oxygen Delivery Room Air 08/10/25 19:49 MDM - Allergic Reaction MDM Narrative Medical decision making narrative: 19-year-old otherwise healthy female with history of depression presenting to the emergency department with some acute rash like symptoms. Patient just started taking lamotrigine 3-4 days ago for her depression. She is on other antidepressant medications but denies any other new exposures, allergen exposures, pets, detergents, clothing or environmental exposures. She started noticing red bumps in her proximal thighs and between her shoulder blades under her bra line. Very minor and only slightly red and itchy. She took an anti allergy pill at home and all her symptoms have improved markedly. She only has some bumps leftover but no longer urticarial or itchy. Redness has subsided. No mucous membrane involvement. No tongue or oral lesions. No vulvar lesions or rash. No systemic features. No throat closing sensations or difficulty breathing. No nausea vomiting diarrhea losing consciousness. She was told by her pharmacist to come to the ER if she experienced a rash from this medication. Was otherwise in her normal state of health. Very small bumps under the bra line bilaterally and in the proximal thighs no longer red or itchy but previously reported as raised and similar to hives. Improved after anti allergy med. Patient is not any acute distress, awake alert oriented pleasant and not exhibiting any red flag signs or symptoms of anaphylaxis or any mucocutaneous lesions that would raise suspicion for a severe rash from lamotrigine. Her symptoms already subsided with an antihistamine she took prior to arrival just 1 hour ago. Patient reassured after examination and given strict return precautions on what to watch out for for spreading rash, involvement of mucous take any is areas or any developing of anaphylaxis type symptoms and she will be able to be safely discharged home at this time With instructions to call her doctor tomorrow morning to discuss this for changing her medications and have a follow-up appointment. Patient and family at bedside were comfortable the plan safely discharged. Medical Records Attestation: I reviewed the patient's medical records. Discharge Plan Discharge Clinical Impression: Allergic reaction, Urticaria Patient Disposition: Home Condition: Stable Instructions: Antibiotic Form, Acute Rash (ED) Additional Instructions: your symptoms are consistent with a mild allergic reaction but do not have any other red flag signs of the severe skin rash that can happen from lamotrigine. Your rash has already improved with anti allergy medications which is reassuring. Continue taking your anti allergy pill every 8 hours for the next day or 2 to completely resolve the minor bumps and redness. If you start exhibiting new symptoms such as difficulty breathing, throat closing sensations, nausea vomiting diarrhea, losing consciousness or worsening rash or rash spreading into the mouth, vulva or other mucous membranes please return to the ER otherwise call your doctor tomorrow to get appropriate medication changes and follow up. Patient Language: Lithuanian Prescriptions: No Action cyclobenzaprine 10 mg tablet methylphenidate HCl 20 mg tablet extended release PO etonogestrel-ethinyl estradiol [EluRyng] 0.12-0.015 mg/24 hr ring VAGINAL aripiprazole 5 mg tablet Follow-up/Referrals: Sushil,Jaiden Hernandez MD [Primary Care Provider] Time of Disposition: 19:35
[2025-08-10 19:49] VITALS: BP 128/65; PULSE 77; RESP 18; TEMP 36.8; O2SAT 100; O2SAT 99
== END 2025-08-10 19:52 | disposition home or self-care (01) ==
PROVIDERS: Emergency Provider Student in an Organized Health Care Education/Training Program; PCP Internal Medicine
DX: T78.40XA Allergy, unspecified, initial encounter (principal); L50.0 Allergic urticaria; F32.A Depression, unspecified; X58.XXXA Exposure to other specified factors, initial encounter
CPT/HCPCS: 99281